=== PATIENT | male | born 1945 | race Caucasian/White ===

== ENCOUNTER 2016-06-14 12:27 | Day surgery (SDC) | payer MEDICARE ==
[2016-06-14] MEDS ORDERED: LACTATED RINGERS 1,000 ML IV ONE (13:45)
[2016-06-14] MEDS ORDERED: fentaNYL 250 MCG/5 ML VIAL IVP ONE (14:42)
[2016-06-14] MEDS ORDERED: MIDAZOLAM 2 MG/2 ML VIAL IVP ONE (14:42)
== END 2016-06-14 12:28 | disposition home or self-care (01) ==
PROC: 0DJD8ZZ Inspection of Lower Intestinal Tract, Via Natural or Artificial Opening Endoscopic (ICD-10-PCS; principal; 2016-06-14 13:30)
DX: Z12.11 Encounter for screening for malignant neoplasm of colon (principal); E11.9 Type 2 diabetes mellitus without complications; I10 Essential (primary) hypertension; K21.9 Gastro-esophageal reflux disease without esophagitis; Z86.010 Personal history of colon polyps
CPT/HCPCS: G0105; J3010; J7120

== ENCOUNTER 2016-09-29 07:51 | Outpatient (CLI) | payer MEDICARE | END 2016-09-29 07:52 | disposition home or self-care (01) | DX: E11.65 Type 2 diabetes mellitus with hyperglycemia (principal); E78.2 Mixed hyperlipidemia; Z79.899 Other long term (current) drug therapy; Z12.5 Encounter for screening for malignant neoplasm of prostate ==

== ENCOUNTER 2016-12-01 08:15 | Outpatient (CLI) | payer MEDICARE ==
[2016-12-01 09:08] LABS: ALBUMIN/GLOBULIN RATIO 1.5 (1.0-2.2); BILIRUBIN,TOTAL 0.7 mg/dL (0.2-1.0); CREATININE 0.8 mg/dL (0.6-1.2); POTASSIUM 4.2 mmol/L (3.5-5.0); TOTAL PROTEIN 7.4 g/dL (6.7-8.2)
[2016-12-04 11:21] LABS: TEST RESULT REPORT (())
[2016-12-05 07:31] LABS: TEST RESULT REPORT (())
== END 2016-12-01 08:16 | disposition home or self-care (01) ==
LOC: LAB 08:15
PROVIDERS: ATTEND Specialist
DX: I25.10 Atherosclerotic heart disease of native coronary artery without angina pectoris (principal); E11.9 Type 2 diabetes mellitus without complications
CPT/HCPCS: 36415; 80053; 81599; 82465; 83704; 83718; 84478

== ENCOUNTER 2017-08-27 08:36 | Outpatient (CLI) | payer OTHER ==
[2017-08-27 09:15] LABS: HB2 TOTAL 16.7 g/dL; HEMOGLOBIN A1C 1.04 g/dL; HEMOGLOBIN A1C % 7.8 % (4.6-6.2)
== END 2017-08-27 08:37 | disposition home or self-care (01) ==
LOC: LAB 08:36
PROVIDERS: ATTEND Internal Medicine
DX: E11.9 Type 2 diabetes mellitus without complications (principal)
CPT/HCPCS: 36415; 83036

== ENCOUNTER 2017-10-12 07:59 | Outpatient (CLI) | payer MEDICARE ==
[2017-10-12 08:46] LABS: BASOPHILS # (AUTO) 0.1 10^3/uL (0.0-0.1); BASOPHILS % (AUTO) 1.2 %; EOSINOPHILS # (AUTO) 0.4 10^3/uL (0.0-0.7); HGB - HEMOGLOBIN 15.1 g/dL (14.0-18.0); LYMPHOCYTES # (AUTO) 1.8 10^3/uL (1.5-3.5); LYMPHOCYTES % (AUTO) 29.1 %; MEAN CORPUSCULAR HEMOGLOBIN 31.9 pg (27.0-31.0); MEAN CORPUSCULAR HGB CONC 33.9 g/dL (32.0-36.0); MEAN PLATELET VOLUME 8.4 fL (7.4-11.4); MONOCYTES # (AUTO) 0.6 10^3/uL (0.0-1.0); MONOCYTES % (AUTO) 9.3 %; NEUTROPHILS # (AUTO) 3.3 10^3/uL (1.5-6.6); NEUTROPHILS % (AUTO) 54.4 %; PLT - PLATELET COUNT 233 10^3/uL (130-450); RED BLOOD COUNT 4.72 10^6/uL (4.70-6.10); RED CELL DISTRIBUTION WIDTH 12.8 % (12.0-15.0)
[2017-10-12 09:06] LABS: ALBUMIN 4.3 g/dL (3.2-5.5); ALBUMIN/GLOBULIN RATIO 1.3 (1.0-2.2); BILIRUBIN,TOTAL 0.7 mg/dL (0.2-1.0); CALCIUM 9.1 mg/dL (8.5-10.3); CREATININE 0.9 mg/dL (0.6-1.2); MAGNESIUM 2.1 mg/dL (1.7-2.8); TOTAL PROTEIN 7.6 g/dL (6.7-8.2)
[2017-10-12 09:13] LABS: CHOL/HDL RATIO 3.2 (<5.0); CHOLESTEROL 138 mg/dL; HDL CHOLESTEROL 43 mg/dL; LDL CHOLESTEROL,CALCULATED 66 mg/dL; LDL/HDL RATIO 1.5 (<3.6); VLDL CHOLESTEROL 29 mg/dL
[2017-10-12 09:21] LABS: HB2 TOTAL 16.8 g/dL; HEMOGLOBIN A1C 0.94 g/dL; HEMOGLOBIN A1C % 7.3 % (4.6-6.2)
[2017-10-16 20:11] LABS: HDL LARGE 5252 nmol/L (3382-9376); LDL PARTICLE NUMBER 1018 nmol/L (732-2035); LDL PATTERN B Pattern (A); LDL SMALL 212 nmol/L (85-473)
== END 2017-10-12 08:00 | disposition home or self-care (01) ==
LOC: LAB 07:59
PROVIDERS: ATTEND Specialist
DX: I25.10 Atherosclerotic heart disease of native coronary artery without angina pectoris (principal); E78.5 Hyperlipidemia, unspecified; E11.9 Type 2 diabetes mellitus without complications; I10 Essential (primary) hypertension; L72.9 Follicular cyst of the skin and subcutaneous tissue, unspecified
CPT/HCPCS: 36415; 80053; 80061; 81599; 82465; 83036; 83704; 83718; 83721; 83735; 84478; 85025

== ENCOUNTER 2018-02-27 08:33 | Outpatient (CLI) | payer MEDICARE ==
[2018-02-27 09:41] LABS: HB2 TOTAL 15.7 g/dL; HEMOGLOBIN A1C 0.98 g/dL; HEMOGLOBIN A1C % 7.9 % (4.6-6.2)
== END 2018-02-27 08:34 | disposition home or self-care (01) ==
LOC: LAB 08:33
PROVIDERS: ATTEND Internal Medicine
DX: E11.9 Type 2 diabetes mellitus without complications (principal)
CPT/HCPCS: 36415; 83036

== ENCOUNTER 2018-06-12 08:56 | Outpatient (CLI) | payer MEDICARE ==
[2018-06-12 10:17] LABS: HB2 TOTAL 16.2 g/dL; HEMOGLOBIN A1C 0.88 g/dL; HEMOGLOBIN A1C % 7.1 % (4.6-6.2)
== END 2018-06-12 08:57 | disposition home or self-care (01) ==
LOC: LAB 08:56
PROVIDERS: ATTEND Internal Medicine
DX: E11.9 Type 2 diabetes mellitus without complications (principal)
CPT/HCPCS: 36415; 83036

== ENCOUNTER 2018-11-22 07:30 | Outpatient (CLI) | payer MEDICARE | END 2018-11-22 07:31 | disposition home or self-care (01) | LOC: LAB 07:30 | PROVIDERS: ATTEND Specialist | DX: Z53.9 Procedure and treatment not carried out, unspecified reason (principal) ==

== ENCOUNTER 2018-11-23 07:42 | Outpatient (CLI) | payer MEDICARE ==
[2018-11-23 09:18] LABS: CREATININE,URINE 37.2 mg/dL; MICROALBUM/CREATININE RATIO,UR 21.5 ug/mg (<30.0); MICROALBUMIN,URINE 0.8 mg/dL (0-300.0)
[2018-11-23 09:20] LABS: ALBUMIN 4.7 g/dL (3.2-5.5); ALBUMIN/GLOBULIN RATIO 1.3 (1.0-2.2); BILIRUBIN,TOTAL 0.7 mg/dL (0.2-1.0); CALCIUM 9.3 mg/dL (8.5-10.3); CREATININE 0.9 mg/dL (0.6-1.2); MAGNESIUM 2.2 mg/dL (1.7-2.8); TOTAL PROTEIN 8.2 g/dL (6.7-8.2)
[2018-11-23 09:24] LABS: CHOLESTEROL 166 mg/dL; HDL CHOLESTEROL 42 mg/dL; LDL CHOLESTEROL,CALCULATED 82 mg/dL; VLDL CHOLESTEROL 42 mg/dL
[2018-11-23 09:25] LABS: HB2 TOTAL 17.5 g/dL; HEMOGLOBIN A1C 1.06 g/dL; HEMOGLOBIN A1C % 7.7 % (4.6-6.2)
[2018-11-26 23:22] LABS: HDL LARGE 3832 nmol/L (3382-9376); LDL PARTICLE NUMBER 1165 nmol/L (732-2035); LDL PATTERN B Pattern (A); LDL PEAK SIZE 206.8 Angstrom (> OR = 217.4); LDL SMALL 256 nmol/L (85-473)
== END 2018-11-23 07:43 | disposition home or self-care (01) ==
LOC: LAB 07:42
PROVIDERS: ATTEND Specialist
DX: E78.2 Mixed hyperlipidemia (principal); I10 Essential (primary) hypertension
CPT/HCPCS: 36415; 80053; 80061; 81599; 82043; 82465; 82570; 83036; 83704; 83718; 83721; 83735; 84478

== ENCOUNTER 2019-06-19 07:50 | Outpatient (CLI) | payer MEDICARE ==
[2019-06-19 08:38] LABS: ALBUMIN 4.4 g/dL (3.2-5.5); ALBUMIN/GLOBULIN RATIO 1.4 (1.0-2.2); BILIRUBIN,TOTAL 0.8 mg/dL (0.2-1.0); CALCIUM 9.2 mg/dL (8.5-10.3); CREATININE 0.8 mg/dL (0.6-1.2); TOTAL PROTEIN 7.5 g/dL (6.7-8.2)
[2019-06-24 11:49] LABS: HDL LARGE 4403 nmol/L (3382-9376); LDL PARTICLE NUMBER 497 nmol/L (732-2035); LDL PATTERN B Pattern (A); LDL PEAK SIZE 215.2 Angstrom (> OR = 217.4); LDL SMALL 85 nmol/L (85-473)
== END 2019-06-19 07:51 | disposition home or self-care (01) ==
LOC: LAB 07:50
PROVIDERS: ATTEND Specialist
DX: E78.2 Mixed hyperlipidemia (principal)
CPT/HCPCS: 36415; 80053; 80061; 81599; 83704

== ENCOUNTER 2019-07-11 12:49 | Outpatient (CLI) | payer MEDICARE ==
[2019-07-11 13:24] LABS: HB2 TOTAL 16.3 g/dL; HEMOGLOBIN A1C 0.87 g/dL
== END 2019-07-11 12:50 | disposition home or self-care (01) ==
LOC: LAB 12:49
PROVIDERS: ATTEND Family Medicine
DX: E11.9 Type 2 diabetes mellitus without complications (principal)
CPT/HCPCS: 36415; 83036

== ENCOUNTER 2019-11-26 07:51 | Outpatient (CLI) | payer MEDICARE ==
[2019-11-26 08:11] LABS: BASOPHILS % (AUTO) 0.5 %; EOSINOPHILS # (AUTO) 0.2 10^3/uL (0.0-0.7); EOSINOPHILS % (AUTO) 3.1 %; HGB - HEMOGLOBIN 14.7 g/dL (14.0-18.0); LYMPHOCYTES # (AUTO) 2.2 10^3/uL (1.5-3.5); LYMPHOCYTES % (AUTO) 29.6 %; MEAN CORPUSCULAR HEMOGLOBIN 31.1 pg (27.0-31.0); MEAN CORPUSCULAR HGB CONC 33.3 g/dL (32.0-36.0); MEAN CORPUSCULAR VOLUME 93.6 fL (80.0-94.0); MEAN PLATELET VOLUME 10.4 fL (7.4-11.4); MONOCYTES # (AUTO) 0.7 10^3/uL (0.0-1.0); MONOCYTES % (AUTO) 8.9 %; NEUTROPHILS # (AUTO) 4.3 10^3/uL (1.5-6.6); NEUTROPHILS % (AUTO) 57.6 %; PLT - PLATELET COUNT 221 10^3/uL (130-450); RED BLOOD COUNT 4.72 10^6/uL (4.70-6.10); RED CELL DISTRIBUTION WIDTH 12.3 % (12.0-15.0); WHITE BLOOD COUNT 7.4 x10^3/uL (4.8-10.8)
[2019-11-26 08:24] LABS: CALCIUM 8.6 mg/dL (8.5-10.3); CREATININE 0.8 mg/dL (0.6-1.2)
[2019-11-26 09:09] LABS: HB2 TOTAL 15.6 g/dL; HEMOGLOBIN A1C 0.92 g/dL; HEMOGLOBIN A1C % 7.5 % (4.6-6.2)
== END 2019-11-26 07:52 | disposition home or self-care (01) ==
LOC: LAB 07:51
PROVIDERS: ATTEND Family Medicine
DX: I25.10 Atherosclerotic heart disease of native coronary artery without angina pectoris (principal); K21.9 Gastro-esophageal reflux disease without esophagitis; E11.9 Type 2 diabetes mellitus without complications
CPT/HCPCS: 36415; 80048; 83036; 84443; 85025

== ENCOUNTER 2020-05-03 08:38 | Outpatient (CLI) | payer MEDICARE ==
[2020-05-03 09:01] LABS: BASOPHILS # (AUTO) 0.1 10^3/uL (0.0-0.1); BASOPHILS % (AUTO) 0.7 %; EOSINOPHILS # (AUTO) 0.2 10^3/uL (0.0-0.7); EOSINOPHILS % (AUTO) 3.3 %; HGB - HEMOGLOBIN 15.1 g/dL (14.0-18.0); LYMPHOCYTES # (AUTO) 1.8 10^3/uL (1.5-3.5); LYMPHOCYTES % (AUTO) 26.5 %; MEAN CORPUSCULAR HEMOGLOBIN 31.9 pg (27.0-31.0); MEAN CORPUSCULAR HGB CONC 33.8 g/dL (32.0-36.0); MEAN CORPUSCULAR VOLUME 94.3 fL (80.0-94.0); MEAN PLATELET VOLUME 9.9 fL (7.4-11.4); MONOCYTES # (AUTO) 0.6 10^3/uL (0.0-1.0); MONOCYTES % (AUTO) 8.8 %; NEUTROPHILS # (AUTO) 4.2 10^3/uL (1.5-6.6); NEUTROPHILS % (AUTO) 60.3 %; PLT - PLATELET COUNT 263 10^3/uL (130-450); RED BLOOD COUNT 4.74 10^6/uL (4.70-6.10); RED CELL DISTRIBUTION WIDTH 12.1 % (12.0-15.0)
[2020-05-03 09:15] LABS: ALBUMIN 4.2 g/dL (3.2-5.5); ALBUMIN/GLOBULIN RATIO 1.4 (1.0-2.2); BILIRUBIN,TOTAL 0.8 mg/dL (0.2-1.0); CALCIUM 9.1 mg/dL (8.5-10.3); TOTAL PROTEIN 7.3 g/dL (6.7-8.2)
[2020-05-03 09:21] LABS: CHOL/HDL RATIO 2.6 (<5.0); CHOLESTEROL 113 mg/dL; HDL CHOLESTEROL 43 mg/dL; LDL CHOLESTEROL,CALCULATED 56 mg/dL; LDL/HDL RATIO 1.3 (<3.6); VLDL CHOLESTEROL 14 mg/dL
[2020-05-03 09:23] LABS: CREATININE,URINE 237.4 mg/dL; MICROALBUM/CREATININE RATIO,UR 6.7 ug/mg (<30.0); MICROALBUMIN,URINE 1.6 mg/dL (0-300.0)
[2020-05-03 12:13] LABS: HEMOGLOBIN A1c% 7.8 % (4.27-6.07)
[2020-05-06 23:14] LABS: HDL LARGE 4475 nmol/L (>6729); LDL PARTICLE NUMBER 675 nmol/L (<1138); LDL PATTERN B Pattern (A); LDL PEAK SIZE 213.9 Angstrom (>222.9); LDL SMALL 127 nmol/L (<142)
== END 2020-05-03 08:39 | disposition home or self-care (01) ==
LOC: LAB 08:38
PROVIDERS: ATTEND Specialist
DX: E78.2 Mixed hyperlipidemia (principal); I25.10 Atherosclerotic heart disease of native coronary artery without angina pectoris; E10.8 Type 1 diabetes mellitus with unspecified complications; K21.9 Gastro-esophageal reflux disease without esophagitis
CPT/HCPCS: 36415; 80053; 80061; 81599; 82043; 82570; 83036; 83704; 83721; 84443; 85025

== ENCOUNTER 2020-11-24 07:57 | Outpatient (CLI) | payer MEDICARE ==
--- NOTE | 2020-11-24 10:24 | XRAY Report ---
PROCEDURE: Hips 2V BILAT INDICATIONS: BURSITIS OF R HIP TECHNIQUE: 2 views of the right hip and left hip were acquired. COMPARISON: None FINDINGS: Bones: No fractures or dislocations. No suspicious bony lesions. The visualized pelvic ring appear s intact. Mild bilateral hip osseous hypertrophy with osteoarthritis.. Soft tissues: No suspicious soft tissue calcifications or masses. IMPRESSION: Mild bilateral hip osteoarthritis. Reviewed by: Jaimie Mcmullen MD, PhD on 11/24/2020 10:22 AM PDT Approved by: Jaimie Mcmullen MD, PhD on 11/24/2020 10:22 AM PDT Station ID: [id number]
== END 2020-11-24 23:59 | disposition home or self-care (01) ==
LOC: DI.N 07:57
PROVIDERS: ATTEND Physician Assistant Medical
DX: M16.0 Bilateral primary osteoarthritis of hip (principal)

== ENCOUNTER 2021-01-20 13:45 | Outpatient (CLI) | payer MEDICARE | END 2021-01-20 13:46 | disposition home or self-care (01) | LOC: COV 13:45 | PROVIDERS: ATTEND Family Medicine | DX: M79.10 Myalgia, unspecified site (principal); R53.83 Other fatigue; R07.0 Pain in throat; Z20.822 Contact with and (suspected) exposure to COVID-19 ==

== ENCOUNTER 2021-02-16 08:15 | Outpatient (CLI) | payer MEDICARE ==
[2021-02-16 08:42] LABS: CALCIUM 9.3 mg/dL (8.5-10.3); CREATININE 0.9 mg/dL (0.6-1.2); POTASSIUM 4.2 mmol/L (3.5-5.0)
[2021-02-16 08:54] LABS: ESTIMATED AVERAGE GLUCOSE 174 mg/dL (70-100); HEMOGLOBIN A1c% 7.7 % (4.27-6.07)
== END 2021-02-16 08:16 | disposition home or self-care (01) ==
LOC: LAB 08:15
PROVIDERS: ATTEND Family Medicine
DX: E10.8 Type 1 diabetes mellitus with unspecified complications (principal); Z12.5 Encounter for screening for malignant neoplasm of prostate
CPT/HCPCS: 36415; 80048; 83036; G0103; 84153

== ENCOUNTER 2021-03-16 08:00 | Outpatient (CLI) | payer MEDICARE ==
[2021-03-16 09:13] LABS: ALBUMIN 4.3 g/dL (3.2-5.5); ALBUMIN/GLOBULIN RATIO 1.4 (1.0-2.2); BILIRUBIN,TOTAL 0.5 mg/dL (0.2-1.0); CREATININE 0.8 mg/dL (0.6-1.2); POTASSIUM 4.1 mmol/L (3.5-5.0); TOTAL PROTEIN 7.3 g/dL (6.7-8.2)
== END 2021-03-16 08:01 | disposition home or self-care (01) ==
LOC: LAB 08:00
PROVIDERS: ATTEND Specialist
DX: E78.2 Mixed hyperlipidemia (principal)
CPT/HCPCS: 36415; 80053; 81599; 83704

== ENCOUNTER 2021-04-07 08:25 | Outpatient (CLI) | payer MEDICARE ==
[2021-04-07 09:16] LABS: CHOL/HDL RATIO 2.3 (<5.0); CHOLESTEROL 107 mg/dL; HDL CHOLESTEROL 47 mg/dL; LDL CHOLESTEROL,CALCULATED 42 mg/dL; LDL/HDL RATIO 0.9 (<3.6); TRIGLYCERIDES 92 mg/dL; VLDL CHOLESTEROL 18 mg/dL
== END 2021-04-07 08:26 | disposition home or self-care (01) ==
LOC: LAB 08:25
PROVIDERS: ATTEND Specialist
DX: E78.2 Mixed hyperlipidemia (principal)
CPT/HCPCS: 36415; 80061; 83721

== ENCOUNTER 2021-05-25 07:55 | Outpatient (CLI) | payer MEDICARE ==
[2021-05-25 08:36] LABS: BASOPHILS # (AUTO) 0.1 10^3/uL (0.0-0.1); BASOPHILS % (AUTO) 0.8 %; EOSINOPHILS # (AUTO) 0.3 10^3/uL (0.0-0.7); HCT - HEMATOCRIT 45.4 % (42.0-52.0); HGB - HEMOGLOBIN 15.1 g/dL (14.0-18.0); LYMPHOCYTES # (AUTO) 2.3 10^3/uL (1.5-3.5); LYMPHOCYTES % (AUTO) 31.3 %; MEAN CORPUSCULAR HEMOGLOBIN 31.5 pg (27.0-31.0); MEAN CORPUSCULAR HGB CONC 33.3 g/dL (32.0-36.0); MEAN CORPUSCULAR VOLUME 94.8 fL (80.0-94.0); MEAN PLATELET VOLUME 10.2 fL (7.4-11.4); MONOCYTES # (AUTO) 0.6 10^3/uL (0.0-1.0); MONOCYTES % (AUTO) 7.9 %; NEUTROPHILS % (AUTO) 55.4 %; PLT - PLATELET COUNT 242 10^3/uL (130-450); RED BLOOD COUNT 4.79 10^6/uL (4.70-6.10); RED CELL DISTRIBUTION WIDTH 12.6 % (12.0-15.0); WHITE BLOOD COUNT 7.2 x10^3/uL (4.8-10.8)
[2021-05-25 08:54] LABS: ALBUMIN 4.2 g/dL (3.2-5.5); ALBUMIN/GLOBULIN RATIO 1.2 (1.0-2.2); ALKALINE PHOSPHATASE 45 IU/L (42-121); ALT ALANINE AMINOTRANSFERASE 39 IU/L (10-60); AST ASPARTATE AMINOTRANSFERASE 27 IU/L (10-42); BILIRUBIN,TOTAL 0.9 mg/dL (0.2-1.0); BUN - BLOOD UREA NITROGEN 20 mg/dL (6-20); CALCIUM 9.1 mg/dL (8.5-10.3); CARBON DIOXIDE - CO2 25 mmol/L (21-32); CHLORIDE 102 mmol/L (101-111); CHOL/HDL RATIO 2.4 (<5.0); CHOLESTEROL 103 mg/dL; CREATININE 0.9 mg/dL (0.6-1.2); GFR - MDRD 82 (>89); GLUCOSE 128 mg/dL (70-100); HDL CHOLESTEROL 43 mg/dL; LDL CHOLESTEROL,CALCULATED 42 mg/dL; POTASSIUM 4.5 mmol/L (3.5-5.0); SODIUM 138 mmol/L (135-145); TOTAL PROTEIN 7.6 g/dL (6.7-8.2); TRIGLYCERIDES 88 mg/dL; VLDL CHOLESTEROL 18 mg/dL
[2021-05-25 09:03] LABS: THYROID STIMULATING HORMONE 3.58 uIU/mL (0.34-5.60)
[2021-05-25 09:34] LABS: MICROALBUM/CREATININE RATIO,UR 29.7 ug/mg (<30.0); MICROALBUMIN,URINE 4.6 mg/dL (0-300.0)
[2021-05-25 11:56] LABS: ESTIMATED AVERAGE GLUCOSE 137 mg/dL (70-100); HEMOGLOBIN A1c% 6.4 % (4.27-6.07)
== END 2021-05-25 07:56 | disposition home or self-care (01) ==
LOC: LAB 07:55
PROVIDERS: ATTEND Family Medicine
DX: I10 Essential (primary) hypertension (principal); E11.9 Type 2 diabetes mellitus without complications; I25.10 Atherosclerotic heart disease of native coronary artery without angina pectoris; E78.5 Hyperlipidemia, unspecified
CPT/HCPCS: 36415; 80053; 80061; 82043; 82570; 83036; 83721; 84443; 85025

== ENCOUNTER 2021-11-16 08:52 | Outpatient (CLI) | payer MEDICARE ==
[2021-11-16 09:30] LABS: CREATININE,URINE 189.5 mg/dL; MICROALBUM/CREATININE RATIO,UR 5.8 ug/mg (<30.0); MICROALBUMIN,URINE 1.1 mg/dL (0-300.0)
[2021-11-16 09:43] LABS: ALBUMIN 4.3 g/dL (3.2-5.5); ALBUMIN/GLOBULIN RATIO 1.4 (1.0-2.2); BILIRUBIN,TOTAL 0.6 mg/dL (0.2-1.0); CALCIUM 8.8 mg/dL (8.5-10.3); POTASSIUM 4.4 mmol/L (3.5-5.0); TOTAL PROTEIN 7.4 g/dL (6.7-8.2)
[2021-11-16 11:14] LABS: ESTIMATED AVERAGE GLUCOSE 140 mg/dL (70-100); HEMOGLOBIN A1c% 6.5 % (4.27-6.07)
[2021-11-18 11:10] LABS: LDL SIZE 19.9 nm (>20.5); LDL-P 522 nmol/L (<1000); LP-INSULIN RESISTANCE SCORE 70 (<=45); SMALL LDL-P 344 nmol/L (<=527)
== END 2021-11-16 08:53 | disposition home or self-care (01) ==
LOC: LAB 08:52
PROVIDERS: ATTEND Specialist
DX: I25.10 Atherosclerotic heart disease of native coronary artery without angina pectoris (principal); E11.9 Type 2 diabetes mellitus without complications; K21.9 Gastro-esophageal reflux disease without esophagitis; E78.00 Pure hypercholesterolemia, unspecified; I10 Essential (primary) hypertension
CPT/HCPCS: 36415; 80053; 82043; 82570; 83036; 83704; 83735

== ENCOUNTER 2022-02-24 09:45 | Outpatient (CLI) | payer MEDICARE ==
[2022-02-24 10:05] LABS: CALCIUM 9.3 mg/dL (8.5-10.3); POTASSIUM 4.5 mmol/L (3.5-5.0)
[2022-02-24 11:18] LABS: ESTIMATED AVERAGE GLUCOSE 134 mg/dL (70-100); HEMOGLOBIN A1c% 6.3 % (4.27-6.07)
== END 2022-02-24 09:46 | disposition home or self-care (01) ==
LOC: LAB 09:45
PROVIDERS: ATTEND Family Medicine
DX: E11.9 Type 2 diabetes mellitus without complications (principal)
CPT/HCPCS: 36415; 80048; 83036

== ENCOUNTER 2022-09-11 07:34 | Outpatient (CLI) | payer MEDICARE ==
[2022-09-11 07:56] LABS: CALCIUM 9.3 mg/dL (8.5-10.3); CREATININE 0.9 mg/dL (0.6-1.2); POTASSIUM 5.3 mmol/L (3.5-5.0)
[2022-09-11 08:12] LABS: MICROALBUM/CREATININE RATIO,UR 7.9 ug/mg (<30.0); MICROALBUMIN,URINE 1.2 mg/dL (0-300.0)
[2022-09-11 11:08] LABS: ESTIMATED AVERAGE GLUCOSE 146 mg/dL (70-100); HEMOGLOBIN A1c% 6.7 % (4.27-6.07)
== END 2022-09-11 07:35 | disposition home or self-care (01) ==
LOC: LAB 07:34
PROVIDERS: ATTEND Family Medicine
DX: I10 Essential (primary) hypertension (principal); E11.9 Type 2 diabetes mellitus without complications
CPT/HCPCS: 36415; 80048; 82043; 82570; 83036

== ENCOUNTER 2023-01-30 07:42 | Outpatient (CLI) | payer MEDICARE ==
[2023-01-30 08:24] LABS: CALCIUM 9.6 mg/dL (8.5-10.3); CREATININE 0.9 mg/dL (0.6-1.3); POTASSIUM 4.9 mmol/L (3.5-4.5)
[2023-01-30 11:19] LABS: ESTIMATED AVERAGE GLUCOSE 143 mg/dL (70-100); HEMOGLOBIN A1c% 6.6 % (4.27-6.07)
== END 2023-01-30 07:43 | disposition home or self-care (01) ==
LOC: LAB 07:42
PROVIDERS: ATTEND Family Medicine
DX: I10 Essential (primary) hypertension (principal); E11.9 Type 2 diabetes mellitus without complications; I25.10 Atherosclerotic heart disease of native coronary artery without angina pectoris
CPT/HCPCS: 36415; 80048; 83036

== ENCOUNTER 2023-06-28 08:24 | Outpatient (CLI) | payer MEDICARE ==
[2023-06-28 08:45] LABS: BASOPHILS % (AUTO) 0.4 %; EOSINOPHILS # (AUTO) 0.2 10^3/uL (0.0-0.7); EOSINOPHILS % (AUTO) 1.8 %; HCT - HEMATOCRIT 43.1 % (42.0-52.0); HGB - HEMOGLOBIN 14.6 g/dL (14.0-18.0); LYMPHOCYTES # (AUTO) 1.7 10^3/uL (1.5-3.5); LYMPHOCYTES % (AUTO) 15.1 %; MEAN CORPUSCULAR HEMOGLOBIN 31.7 pg (27.0-31.0); MEAN CORPUSCULAR HGB CONC 33.9 g/dL (32.0-36.0); MEAN CORPUSCULAR VOLUME 93.7 fL (80.0-94.0); MEAN PLATELET VOLUME 10.4 fL (7.4-11.4); MONOCYTES # (AUTO) 0.9 10^3/uL (0.0-1.0); MONOCYTES % (AUTO) 8.2 %; NEUTROPHILS # (AUTO) 8.1 10^3/uL (1.5-6.6); NEUTROPHILS % (AUTO) 74.1 %; PLT - PLATELET COUNT 262 10^3/uL (130-450); RED CELL DISTRIBUTION WIDTH 12.4 % (12.0-15.0); WHITE BLOOD COUNT 10.9 x10^3/uL (4.8-10.8)
[2023-06-28 09:07] LABS: ALBUMIN 4.3 g/dL (3.2-5.5); ALBUMIN/GLOBULIN RATIO 1.7 (1.0-2.2); ALKALINE PHOSPHATASE 50 IU/L (42-121); ALT ALANINE AMINOTRANSFERASE 30 IU/L (10-60); AST ASPARTATE AMINOTRANSFERASE 18 IU/L (10-42); BILIRUBIN,TOTAL 0.6 mg/dL (0.2-1.0); BUN - BLOOD UREA NITROGEN 23 mg/dL (6-20); CALCIUM 9.2 mg/dL (8.5-10.3); CARBON DIOXIDE - CO2 25 mmol/L (21-32); CHLORIDE 104 mmol/L (101-111); CHOL/HDL RATIO 2.2 (<5.0); CHOLESTEROL 89 mg/dL; CREATININE 0.9 mg/dL (0.6-1.3); GFR - MDRD 82 (>89); GLUCOSE 95 mg/dL (74-104); HDL CHOLESTEROL 40 mg/dL; LDL CHOLESTEROL,CALCULATED 26 mg/dL; LDL/HDL RATIO 0.7 (<3.6); POTASSIUM 4.6 mmol/L (3.5-4.5); SODIUM 136 mmol/L (135-145); TOTAL PROTEIN 6.9 g/dL (6.4-8.9); TRIGLYCERIDES 113 mg/dL (48-352); VLDL CHOLESTEROL 23 mg/dL
[2023-06-28 09:22] LABS: THYROID STIMULATING HORMONE 2.17 uIU/mL (0.34-5.60)
[2023-06-28 11:17] LABS: ESTIMATED AVERAGE GLUCOSE 148 mg/dL (70-100); HEMOGLOBIN A1c% 6.8 % (4.27-6.07)
== END 2023-06-28 08:25 | disposition home or self-care (01) ==
LOC: LAB 08:24
PROVIDERS: ATTEND Family Medicine
DX: I10 Essential (primary) hypertension (principal); E11.9 Type 2 diabetes mellitus without complications; I25.10 Atherosclerotic heart disease of native coronary artery without angina pectoris; Z12.5 Encounter for screening for malignant neoplasm of prostate
CPT/HCPCS: 36415; 80053; 80061; 83036; 84443; 85025; G0103; 83721; 84153

== ENCOUNTER 2023-10-26 19:00 | Outpatient (CLI) | payer OTHER, MEDICARE | END 2023-10-26 23:59 | disposition critical access hospital (66) | LOC: EMS 19:00 | PROVIDERS: ATTEND Emergency Medicine | DX: M54.2 Cervicalgia (principal); R41.0 Disorientation, unspecified; V43.52XA Car driver injured in collision with other type car in traffic accident, initial encounter; Y92.413 State road as the place of occurrence of the external cause | CPT/HCPCS: A0425; A0429 ==

== ENCOUNTER 2023-10-26 19:09 | Emergency (ER) | payer OTHER, MEDICARE ==
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
[2023-10-26 19:39] VITALS: BP 105/64; O2SAT 99
[2023-10-26] MEDS: ACETAMINOPHEN 500 MG TABLET PO STA (19:52)
[2023-10-26] MEDS: HYDROcod/ACET 5/325 Prepack 4 PO STA (21:37)
--- NOTE | 2023-10-26 21:48 | XRAY Report ---
PROCEDURE: Ankle 3+V RT INDICATIONS: ANKLE INJ TECHNIQUE: 3 views of the ankle were acquired. COMPARISON: None. FINDINGS: Bones: No fractures or dislocations. Ankle mortise is normally aligned. No suspicious bony lesions . Soft tissues: No tibiotalar joint effusion. Achilles tendon appears normal. IMPRESSION: No acute bony abnormality. Reviewed by: León Enriquez MD on 10/26/2023 9:47 PM PDT Approved by: León Enriquez MD on 10/26/2023 9:47 PM PDT Station ID: [id number]
== END 2023-10-26 21:51 | disposition home or self-care (01) ==
LOC: EDUNIT# → ED 19:09
DX: S99.911A Unspecified injury of right ankle, initial encounter (principal); V49.49XA Driver injured in collision with other motor vehicles in traffic accident, initial encounter; Y93.89 Activity, other specified; Y92.410 Unspecified street and highway as the place of occurrence of the external cause
CPT/HCPCS: 73610; 99283; 99284; A9270

== ENCOUNTER 2023-11-03 10:28 | Outpatient (CLI) | payer MEDICARE ==
--- NOTE | 2023-11-04 14:08 | XRAY Report ---
PROCEDURE: Knee 3V LT INDICATIONS: CONTUSION OF LT KNEE TECHNIQUE: 3 views of the knee(s) were acquired. COMPARISON: None. FINDINGS: Bones: No fractures or dislocations. Moderate medial and mild lateral and patellofemoral compartmen t joint space narrowing and juxta-articular osteophytosis. No suspicious bony lesions. Soft tissues: Small knee joint effusion. No suspicious soft tissue calcifications or masses. Vascul ar calcifications. IMPRESSION: 1.No acute bony abnormality. If there remains a high clinical concern for fracture, consider cross-se ctional imaging now. If pain persists, consider repeat x-ray in 10-14 days or cross-sectional imaging . 2.Moderate medial and mild lateral and patellofemoral compartment osteoarthritis. Reviewed by: Ann Lorenzo MD on 11/04/2023 2:07 PM PDT Approved by: Ann Lorenzo MD on 11/04/2023 2:07 PM PDT Station ID: [id number]
--- NOTE | 2023-11-04 14:11 | XRAY Report ---
PROCEDURE: Cervical Spine 2-3V INDICATIONS: STRAIN OF MUSCLE,FASCIA, AND TENDON AT NECK TECHNIQUE: 3 view(s) of the cervical spine were acquired. COMPARISON: None. FINDINGS: Bones: No fractures or dislocations to the C7 level. The lateral masses of C1 appear intact on the odontoid view. No suspicious bony lesions. Straightening of the normal cervical lordosis. Moderate to severe osteophytosis, disc height loss and facet/uncal arthropathy, notably at C4-C5, C5-C6 and C6 -C7. Ossification of the nuchal ligament. Soft tissues: No prevertebral soft tissue swelling. Bilateral hearing aids. Visualized lung apices a re clear. IMPRESSION: 1.No displaced fracture or traumatic subluxation. If clinical symptoms persist, consider cross-sectio nal imaging for further evaluation. 2.Moderate to severe multilevel degenerative changes, notably at C4-C5, C5-C6 and C6-C7. 3.Straightening of the normal cervical lordosis which may be secondary to muscular strain/spasm. 4.Ossification of the nuchal ligament. Reviewed by: Ann Lorenzo MD on 11/04/2023 2:09 PM PDT Approved by: Ann Lorenzo MD on 11/04/2023 2:09 PM PDT Station ID: [id number]
== END 2023-11-03 10:29 | disposition home or self-care (01) ==
LOC: DI 10:28
PROVIDERS: ATTEND Physician Assistant
DX: M47.812 Spondylosis without myelopathy or radiculopathy, cervical region (principal); S16.1XXD Strain of muscle, fascia and tendon at neck level, subsequent encounter; M17.12 Unilateral primary osteoarthritis, left knee; S80.02XD Contusion of left knee, subsequent encounter

== ENCOUNTER 2024-01-23 07:44 | Outpatient (CLI) | payer MEDICARE ==
[2024-01-23 08:05] LABS: CALCIUM 9.4 mg/dL (8.5-10.3); CREATININE 0.9 mg/dL (0.6-1.3); POTASSIUM 4.4 mmol/L (3.5-4.5)
[2024-01-23 08:36] LABS: ESTIMATED AVERAGE GLUCOSE 140 mg/dL (70-100); HEMOGLOBIN A1c% 6.5 % (4.27-6.07)
[2024-01-23 12:47] LABS: CREATININE,URINE 173.7 mg/dL; MICROALBUM/CREATININE RATIO,UR 14.4 ug/mg (<30.0); MICROALBUMIN,URINE 2.5 mg/dL
== END 2024-01-23 07:45 | disposition home or self-care (01) ==
LOC: LAB 07:44
PROVIDERS: ATTEND Family Medicine
DX: I10 Essential (primary) hypertension (principal); E11.9 Type 2 diabetes mellitus without complications
CPT/HCPCS: 36415; 80048; 82043; 82570; 83036